=== PATIENT | male | born 1985 | race Two or more races ===

== ENCOUNTER 2017-06-14 23:33 | Emergency (ER) | payer BC ==
[2017-06-15] MEDS ORDERED: Clindamycin CAP* 150 MG PO ONE (00:47)
[2017-06-15] MEDS ORDERED: Ketorolac INJ* 60 MG/2 ML VIAL IM ONE (00:47)
[2017-06-15] MEDS ORDERED: Lidocaine 2% EPI 1:200000 MPF* 20 ML VIAL ONE (02:50)
[2017-06-15] MEDS ORDERED: oxyCODONE/Acetamin 5/325 MG* TAB PO ONE (03:20)
[2017-06-15 04:27] VITALS: BP 140/82
--- NOTE | 2017-06-15 05:39 | ED ---
Genesis Oconnell Thomas, scribed for Srini Epstein on 06/15/17 at 0333 . Skin Complaint - HPI Summary HPI Summary: The patient is a 32 y/o M presenting with R thigh pain, redness, and swelling that developed over the course of the last week. The swelling started as a small area which has since progressed. The redness has recently wrapped down into his proximal calf, which brings him in tonight. He denies fevers, chills, N /V/D, abd pain, CP, SOB, ROSENBAUM, and calf pain. He has no Hx of MRSA or staph infection. There is no known trauma to the area. - History of Current Complaint Chief Complaint: EDRashSkinAbscess Time Seen by Provider: 06/15/17 00:47 Stated Complaint: RT THIGH SWELLING Hx Obtained From: Patient Onset/Duration: Started Weeks Ago - onset one week ago, Still Present Timing: Constant Current Severity: Mild Pain Intensity: 1 Pain Scale Used: 0-10 Numeric Skin Location: Other: - R thigh Character: Swelling, Pain, Redness Aggravating Symptom(s): Nothing Alleviating Symptom(s): Nothing - Allergy/Home Medications Allergies/Adverse Reactions: Allergies Allergy/AdvReac Type Severity Reaction Status Date / Time No Known Allergies Allergy Verified 06/14/17 23:40 PMH/Surg Hx/FS Hx/Imm Hx Previously Healthy: No Endocrine/Hematology History: Denies: Hx Diabetes, Hx Thyroid Disease Cardiovascular History: Denies: Hx Hypertension Respiratory History: Reports: Hx Asthma - Child moreno asthma Denies: Hx Chronic Obstructive Pulmonary Disease (COPD) GI History: Denies: Hx Ulcer - Surgical History Surgery Procedure, Year, and Place: 1990 - appendectomy Infectious Disease History: No Infectious Disease History: Denies: Hx Hepatitis, Hx Human Immunodeficiency Virus (HIV), Traveled Outside the [place] in Last 30 Days - Family History Known Family History: Positive: Other - When asked, he responds "none" - Social History Alcohol Use: None Hx Substance Use: No Substance Use Type: Reports: None Hx Tobacco Use: No Smoking Status (MU): Never Smoked Tobacco Review of Systems Negative: Fever, Chills Negative: Chest Pain Negative: Shortness Of Breath Negative: Abdominal Pain, Vomiting, Diarrhea, Nausea Positive: Other - NEGATIVE: calf pain Positive: Other - R thigh pain, redness, and swelling Negative: Headache All Other Systems Reviewed And Are Negative: Yes Physical Exam - Summary Physical Exam Summary: Appearance: Well appearing, no pain distress. He is concerned, calm, and cooperative. Skin: Warm, dry, reflects adequate perfusion. He has an 8cm area of erythema and induration about the distal lateral right thigh. The central area has subtle bogginess. Head/face: Normal. Eyes: EOMI, ANDERS. ENT: Normal. Neck: Supple, nontender. Respiratory: CTA, breath sounds present. Cardiovascular: RRR, pulses symmetrical. Abdomen: Nontender, soft. Bowel: Present. Musculoskeletal: Normal, strength/ROM intact. EXTREMITIES: Negative James's sign. Strength/motor intact. There is no lower extremity edema. Good distal pulses. Neurovascular is intact. Sensory/motor intact. Neuro: Normal, sensory motor intact, A&Ox3. Triage Information Reviewed: Yes Vital Signs On Initial Exam: Initial Vitals Temp Pulse Resp BP Pulse Ox 99.0 F 93 14 147/72 98 06/14/17 23:37 06/14/17 23:37 06/14/17 23:37 06/14/17 23:37 06/14/17 23:37 Vital Signs Reviewed: Yes - Esme Coma Scale Coma Scale Total: 15 Diagnostics - Vital Signs Vital Signs Temp Pulse Resp BP Pulse Ox 06/14/17 23:37 99.0 F 93 14 147/72 98 - Laboratory Lab Statement: Any lab studies that have been ordered have been reviewed, and results considered in the medical decision making process. Course/Dx - Course Course Of Treatment: PROCEDURE NOTE: I&D. An I&D was done on an abscess of the right thigh. I opened the abscess under 1% lidocaine with Epi. An 11 blade was used. Pus was drained. Loculations were released. Cultures were sent. Packing was placed. The patient tolerated the procedure well with no complications. Assessment/Plan: Patient presents with an abscess to his right thigh. An I&D was performed he was instructed to follow up tomorrow at primary care, urgent care, or the ED. Patient given Clindamycin. - Diagnoses Provider Diagnoses: Abscess of right thigh Discharge - Discharge Plan Condition: Stable Disposition: HOME Prescriptions: Clindamycin Cap(NF) [Clindamycin Cap 300 mg Cap(NF)] 300 mg PO Q6H #40 cap Ibuprofen TAB* [Motrin TAB* 600 MG] 600 mg PO Q8H PRN #20 tab MDD 3 PRN Reason: Pain oxyCODONE/Acetamin 5/325 MG* [Percocet 5/325 TAB*] 1 tab PO Q8H PRN #12 tab MDD 3 PRN Reason: Pain Patient Education Materials: Abscess (ED) Referrals: Godfrey Leiva MD [Primary Care Provider] - 1 Day Additional Instructions: You must follow up tomorrow (06/16/17) at your primary care physician, an urgent care, or this emergency room. The documentation as recorded by the Genesis charles Thomas accurately reflects the service I personally performed and the decisions made by , Srini Epstein.
== END 2017-06-15 03:50 | disposition home or self-care (01) ==
LOC: ED 23:33
DX: L02.415 Cutaneous abscess of right lower limb (principal)
CPT/HCPCS: 10060; 87070; 87205; 87640; 87641; 96372; 99283; A9270-GY; J1885

== ENCOUNTER 2017-06-16 11:08 | Emergency (ER) | payer BC ==
[2017-06-16 11:24] VITALS: BP 131/71
--- NOTE | 2017-06-16 11:44 | UC ---
HPI Wound/Suture Re-check - HPI Summary HPI Summary: Was in the ED 2 days ago for abscess drainage. Here today for recheck. Currently taking Clindamycin - History Of Current Complaint Chief Complaint: UCWounds Stated Complaint: DRESSING CHANGE Time Seen by Provider: 06/16/17 11:32 Hx Obtained From: Patient Onset/Duration: Lasting Days Severity: Mild Pain Intensity: 2 Pain Scale Used: 0-10 Numeric Procedure Type: Abscess drain with packing rt lateral thigh Surgery Date: 06/14/17 - Allergies/Home Medications Allergies/Adverse Reactions: Allergies Allergy/AdvReac Type Severity Reaction Status Date / Time No Known Allergies Allergy Verified 06/16/17 11:24 PMH/Surg Hx/FS Hx/Imm Hx Previously Healthy: Yes - Surgical History Surgical History: Yes Surgery Procedure, Year, and Place: 1990 - appendectomy - Family History Known Family History: Positive: Unknown - Social History Lives: With Family Alcohol Use: None Substance Use Type: None Smoking Status (MU): Never Smoked Tobacco Review of Systems Constitutional: Negative Skin: Other - Surgically opened abscess rt lateral thigh Respiratory: Negative Cardiovascular: Negative Gastrointestinal: Negative Neurological: Negative Psychological: Negative All Other Systems Reviewed And Are Negative: Yes Physical Exam Triage Information Reviewed: Yes Appearance: Well-Appearing, Well-Nourished Vital Signs: Initial Vital Signs Temp 98.8 F 06/16/17 11:22 Pulse 84 06/16/17 11:22 Resp 16 06/16/17 11:22 BP 131/71 06/16/17 11:22 Pulse Ox 98 06/16/17 11:22 Vital Signs Reviewed: Yes Respiratory Exam: Normal Respiratory: Positive: Chest non-tender, Lungs clear Cardiovascular Exam: Normal Cardiovascular: Positive: RRR, No Murmur Skin Exam: Other Skin: Positive: Other - Surgically opened abscess rt lateral leg. Incision approx 2cm. Area of erythema and mild induration extending approx 1cm around the incision. pt reports this is significantly improved. Serosanguineous fluid expressed without odor. Course/Dx - Course Course Of Treatment: Pt was seen in ED two days ago for abscess drainage. Today he reports a significant improvement of the swelling, pain, and redness of the area. Has been keeping the dressing dry. Packing was removed and wound explored - serosanguineous fluid expressed without odor. Appears to be healing well. Wound was dressed with telfa. Advised to keep dry, keep taking antibiotic, and return in 2 days for another recheck. - Differential Dx - Laceration/Wound Differential Diagnoses: Abscess Provider Diagnoses: Abscess right lateral thigh Discharge - Discharge Plan Condition: Stable Disposition: HOME Patient Education Materials: Abscess (ED) Additional Instructions: If you develop fever, increasing swelling or redness, please go to ED or call our office. PLEASE RETURN TO ED OR CLINIC FOR A WOUND RECHECK IN 2 DAYS
== END 2017-06-16 12:00 | disposition home or self-care (01) ==
LOC: UCEAST 11:08
DX: L02.415 Cutaneous abscess of right lower limb (principal)
CPT/HCPCS: 99211; G0463

== ENCOUNTER 2017-06-19 09:02 | Emergency (ER) | payer BC ==
[2017-06-19 09:08] VITALS: BP 136/82
[2017-06-19] MEDS ORDERED: Tetan/Diph/Pertus SYR(Tdap)* 0.5 ML SYR(BOOSTRIX) use SYR IM ONE (09:57)
--- NOTE | 2017-07-14 11:18 | UC ---
Frank Oconnell Angela, scribed for Marietta Wilburn MD on 06/19/17 at 0942 . HPI Wound/Suture Re-check - HPI Summary HPI Summary: This pt is a 32 y/o male presenting to [facility] for a wound re-check. Pt was seen in the ED 4 days ago for an abscess on his right thigh and had an I&D. He states that he is currently taking clindamycin 1 tablet 4 times a day. Pt is unsure of his last tetanus shot. - History Of Current Complaint Chief Complaint: UCWounds Stated Complaint: WOUND CHECK Time Seen by Provider: 06/19/17 09:36 Hx Obtained From: Patient Onset/Duration: Lasting Days, Still Present - Allergies/Home Medications Allergies/Adverse Reactions: Allergies Allergy/AdvReac Type Severity Reaction Status Date / Time No Known Allergies Allergy Verified 06/16/17 11:24 PMH/Surg Hx/FS Hx/Imm Hx Other Endocrine History: DENIES: diabetes Other Cardiovascular History: DENIES: HTN - Surgical History Surgical History: Yes Surgery Procedure, Year, and Place: 1990 - appendectomy - Family History Known Family History: Positive: Other - When asked, he responds "none" - Social History Occupation: Employed Full-time - owns a liquor store Alcohol Use: None Substance Use Type: None Smoking Status (MU): Never Smoked Tobacco Review of Systems Constitutional: Negative Skin: Other - wound on right thigh Eyes: Negative ENT: Negative Respiratory: Negative Cardiovascular: Negative Gastrointestinal: Negative Genitourinary: Negative Motor: Negative Neurovascular: Negative Musculoskeletal: Negative Neurological: Negative Psychological: Negative Is Patient Immunocompromised?: No All Other Systems Reviewed And Are Negative: Yes Physical Exam Triage Information Reviewed: Yes Appearance: Well-Nourished Vital Signs: Initial Vital Signs Temp 97.7 F 06/19/17 09:05 Pulse 64 06/19/17 09:05 Resp 18 06/19/17 09:05 BP 136/82 06/19/17 09:05 Pulse Ox 99 06/19/17 09:05 Vital Signs Reviewed: Yes Eye Exam: Normal ENT Exam: Normal Respiratory Exam: Normal Respiratory: Positive: Other: - no dyspnea, no tachypnea, normal respiratory rate. Cardiovascular Exam: Normal Cardiovascular: Positive: Other: - heart rate regular, good general skin color, good capillary refill. Abdominal Exam: Normal Abdomen Description: Positive: Nontender, No Organomegaly, Soft Bowel Sounds: Positive: Present Musculoskeletal Exam: Normal Musculoskeletal: Positive: Strength Intact - moves all 4 ext's Neurological Exam: Normal - nonfocal, grossly intact Psychological Exam: Normal - conversing easily and appropriately Skin: Positive: Other - Wound on right thigh: 1.2 cm (depth) x 0.6 cm (width) x 0.8 cm (length). It extends full thickness through full thickness dermis. No julio cellulitis. No purulence. + dark red granulation tissue and devitalized fibrin / slough. Course/Dx - Course Course Of Treatment: Elevated BP and advised to follow up with PCP. Dressing placed by myself. Reviewed need for f/u - recommend [facility]. D/ w pt, he seems amenable and agrees to referral. I called the wound clinic, spoke with campus receptionist. Mr. Ortega will call for appt this week. Reviewed wound care and wound hygiene. Questions as posed answered to the best of my ability. Tet utd. - Differential Dx - Laceration/Wound Provider Diagnoses: Nonhealing R thigh wound, initial wounding event 2/2 trauma Discharge - Discharge Plan Condition: Stable Disposition: HOME Patient Education Materials: Diphtheria/Acellular Pertussis/Tetanus Booster Vaccine (By injection), Chronic Wound Care (ED) Referrals: Godfrey Leiva MD [Primary Care Provider] - Additional Instructions: Your blood pressure was elevated during today's visit, 136/82. Please follow up with your primary care provider in 1-2 weeks. While sitting down try to elevate your foot. Avoid rubbing alcohol and hydrogen peroxide. Seek medical attention for worse or new problems in the meantime. REFERRAL - WOUND CLINIC AT [facility]. . Please call today to schedule appointment for this week. Seek medical attention for worse or new problems in the meantime. Dressing today: iodoform gauze, gauze / abd pad, paper tape. avoid astringents. Dressing change in approx 2 days (unless soaks through), unless otheriwise advised in the wound clinic. The documentation as recorded by the Frank charles Angela accurately reflects the service I personally performed and the decisions made by me, Marietta Wilburn MD.
== END 2017-06-19 10:37 | disposition home or self-care (01) ==
LOC: UCEAST 09:02
DX: S71.101D Unspecified open wound, right thigh, subsequent encounter (principal); X58.XXXD Exposure to other specified factors, subsequent encounter; Z23 Encounter for immunization; Z90.89 Acquired absence of other organs
CPT/HCPCS: 90471; 90715; 99211; G0463